=== PATIENT | male | born 1995 | race Caucasian/White ===

== ENCOUNTER 2022-05-20 22:00 | Emergency (ER) | payer OTHER, SELFPAY ==
[2022-05-20 22:06] VITALS: BP 125/78; PULSE 105; RESP 18; TEMP 37.3; O2SAT 100
--- NOTE | 2022-05-20 22:40 | ED.SKABFB ---
HPI - Skin/Abscess/Foreign Bdy General Chief complaint: Skin/Abscess/Foreign Body Stated complaint: abcess to buttocks Time Seen by Provider: 05/20/22 22:19 History of Present Illness HPI narrative: Patient is a 27-year-old male presenting with concerns for an abscess on his buttocks. Patient states that he has had an area of swelling on his left buttocks for some time. States that he thinks it has been a cyst. States that it will give him pain from time to time. States that he was recently picking at it and for the last several days it has grown in size and has become increasingly painful. Denies any drainage. Denies prior abscesses. Denies fevers or chills, nausea or vomiting, or other systemic symptoms. Related Data Home Medications Medication Instructions Recorded Confirmed No Home Medications 05/20/22 05/20/22 Allergies Allergy/AdvReac Type Severity Reaction Status Date / Time methylphenidate Allergy Stopped Verified 05/20/22 22:09 [From Ritalin] Breathing Penicillins Allergy Rash Verified 05/20/22 22:09 Review of Systems Review of Systems: All systems reviewed & are unremarkable except as noted in HPI and below Exam Narrative: GENERAL: Well-appearing, well-nourished, and in no acute distress. HEAD: Normocephalic, atraumatic. EYES: PERRLA and EOMI. ENT: Nares clear, no rhinorrhea or epistaxis. Mucous membranes moist. NECK: Supple. CHEST: Clear to auscultation. No respiratory distress. HEART: Regular rate and rhythm. No murmur heard. Normal peripheral pulses. ABDOMEN: Soft, nontender, nondistended, normal active bowel sounds. EXTREMITIES: Normal range of motion. No edema. SKIN: Warm, dry, abscess on left buttocks towards anal cleft, small amount of fluctuance noted, no drainage, no surrounding cellulitic changes NEURO: No focal deficits. Alert and oriented x3. PSYCH: Normal mood and affect. Course Vital Signs Vital signs: Vital Signs Temperature 99.1 F 05/20/22 22:06 Pulse Rate 105 H 05/20/22 22:06 Respiratory Rate 18 05/20/22 22:06 Blood Pressure 125/78 05/20/22 22:06 Pulse Oximetry 100 05/20/22 22:06 Oxygen Delivery Room Air 05/20/22 22:06 Temperature 99.1 F 05/20/22 22:06 Pulse Rate 105 H 05/20/22 22:06 Respiratory Rate 18 05/20/22 22:06 Blood Pressure 125/78 05/20/22 22:06 Pulse Oximetry 100 05/20/22 22:06 Oxygen Delivery Room Air 05/20/22 22:06 MDM - Skin/Abscess/Foreign Bdy MDM Narrative Medical decision making narrative: Patient is a 27-year-old male presenting with an abscess on his left buttocks. There is an area of fluctuance that was amenable to drainage. Large amount of purulent drainage was expelled from the abscess. Patient tolerated without complication. Discussed appropriate supportive care. Advised PCP follow-up. Appropriate return precautions given. Patient voiced understanding and is agreeable with plan. Discharged in stable condition. Critical Care Time Critical Care Time Critical Care Time: No Discharge Plan Discharge Clinical Impression: Abscess of skin or subcutaneous tissue Patient Disposition: Home, Self-Care Condition: Stable Instructions: Antibiotic Form, Abscess (ED) Additional Instructions: Please follow-up with primary care. You may also follow-up with general surgery if you would like the cyst removed. Please use Tylenol and ibuprofen for pain control. If your symptoms worsen, you develop fevers, or other concerning symptoms arise please return to the ER. Prescriptions: No Action No Home Medications Follow-up/Referrals: PHYSICIAN,CORPORATE REPRESENTATIVE [Primary Care Provider] - Sade Peres DO [Physician] -
== END 2022-05-20 23:59 | disposition home or self-care (01) ==
PROVIDERS: Emergency Provider Emergency Medicine
DX: L02.31 Cutaneous abscess of buttock (principal)
CPT/HCPCS: 10060; 99282